=== PATIENT | male | born 1945 | race Caucasian/White ===

== ENCOUNTER 2017-02-24 12:01 | Outpatient (CLI) ==
--- NOTE | 2017-02-24 14:03 | DI ---
Exam: Lumbar spine five views History: Lower back pain FINDINGS: Frontal, lateral, lumbosacral and bilateral oblique projections. Lumbar spine shows berry l alignment. Vertebral body height is maintained. Multilevel low grade anterior plate spondylosis. Minor disc space narrowing mostly at L4-5. Probably low grade lower lumbar facet arthropathy. No s uspicious bony lesions or acute bony abnormalities. Impression: 1. No acute abnormalities of the lumbar spine. Low grade degenerative change by radiograph.
== END 2017-02-24 12:02 | disposition home or self-care (01) ==
LOC: RAD 12:01
PROVIDERS: ATTEND Internal Medicine
DX: M54.5 Low back pain (principal)

== ENCOUNTER 2017-08-25 08:09 | Inpatient (IN) | payer OTHER ==
[2017-08-25 08:15] VITALS: BMI 23.1
[2017-08-25] MEDS ORDERED: SOLU-CORTEF 250 MG IVP STA (08:33)
[2017-08-25] MEDS ORDERED: DUONEB NEB STA (08:33)
--- NOTE | 2017-08-25 09:18 | CT ---
EXAM: CT of the chest without contrast History: Cough. Comparison: Chest radiograph 12/17/2014, chest CT 12/13/2014 Technique: Multiplanar CT images through the chest were obtained without the administration of IV co ntrast Findings: Heart size is normal. No pericardial effusion. Great vessels are unremarkable. No patho logically enlarged thoracic lymph nodes. Mild bilateral gynecomastia. Calcified granulomas again se en within the thorax. Mild diffuse bronchial wall thickening. No consolidation. No pleural fluid an d no pneumothorax. No suspicious lung masses or lung nodules. Within the visualized upper abdomen, no acute findings. No acute osseous abnormalities. Impression: Mild diffuse bronchial wall thickening but no consolidated pneumonia.
--- NOTE | 2017-08-25 10:17 | ED.PDOC ---
General ED Provider: Dr. ARIAS ULLOA Chief Complaint: Respiratory Complaint Stated Complaint: cough, wheezing Time Seen by Physician: 08:16 (no respiratory distress ) Mode of Arrival: Walk-In Information Source: Patient Exam Limitations: No limitations Primary Care Provider: SARAY MCCULLOUGH Nursing and Triage Documentation Reviewed and Agree: Yes Reviewed sepsis parameters & appropriate labs ordered?: No System Inflammatory Response Syndrome: Not Applicable Sepsis Protocol: For patient's 13 years and over: Temp is 96.8 and below OR 101 and greater Pulse >90 BPM Resp >20/minute Acutely Altered Mental Status Are patient's symptoms suggestive of a new infection, such as: -Pneumonia -Skin, Soft Tissue -Endocarditis -UTI -Bone, Joint Infection -Implantable Device -Acute Abdominal Infection -Wound Infection -Meningitis -Blood Stream Catheter Infection -Unknown System Inflammatory Response Syndrome: Not Applicable Review of Systems - Review Of Systems Constitutional: Reports: No symptoms Eyes: Reports: No symptoms Ears, Nose, Mouth, Throat: Reports: No symptoms Respiratory: Reports: Cough, Wheezing Cardiac: Reports: No symptoms GI: Reports: No symptoms : Reports: No symptoms Musculoskeletal: Reports: No symptoms Skin: Reports: No symptoms Neurological: Reports: No symptoms Endocrine: Reports: No symptoms Hematologic/Lymphatic: Reports: No symptoms All Other Systems: Reviewed and Negative Past Medical History - Past Medical History Previously Healthy: Yes Endocrine: Reports: None Cardiovascular: Reports: None Respiratory: Reports: COPD Hematological: Reports: None Gastrointestinal: Reports: None Genitourinary: Reports: None Neuro/Psych: Reports: None Musculoskeletal: Reports: None Cancer: Reports: None - Surgical History General Surgical History: Reports: None - Family History Family History: Reports: None - Social History Smoking Status: Never smoker Hx Substance Use: No Alcohol Screening: None Physical Exam - Physical Exam Appearance: Well-appearing, No pain distress, Well-nourished Eyes: DEMARCUS, EOMI, Conjunctiva clear ENT: Ears normal, Nose normal, Oropharynx normal Respiratory: Wheezes Cardiovascular: RRR, Pulses normal, No rub, No murmur GI/: Soft, Nontender, No masses, Bowel sounds normal, No Organomegaly Musculoskeletal: Normal strength, ROM intact, No edema, No calf tenderness Skin: Warm, Dry, Normal color Neurological: Sensation intact, Motor intact, Reflexes intact, Cranial nerves intact, Alert, Oriented Psychiatric: Affect appropriate, Mood appropriate Interpretation - Radiology Interpretation Radiology Interpretation By: Radiologist Radiology Results: No acute changes Re-Evaluation - Re-Evaluation Time of Re-Evaluation: 10:00 Status: Improved Vital Signs Stable: Yes Pain Level: 0 Appearance: NAD Lungs: Other (still has scattere wheezing) Skin: Warm and Dry Neuro: Alert and Oriented X3 CV: RRR Physician Notification - Case Discussed Physician Notified: mccullough Time of Notification: 10:17 Admit To: Inpatient Critical Care Note - Critical Care Note Total Time (mins): 0 Course - Course Hematology/Chemistry: 08/25/17 08:50 08/25/17 08:50 Orders, Labs, Meds: Lab Review 08/25/17 08/25/17 08/25/17 08:33 08:50 08:50 WBC 9.02 RBC 4.73 Hgb 14.8 Hct 42.4 MCV 89.6 MCH 31.3 H MCHC 34.9 RDW Coeff of Cindy 12.5 Plt Count 218 Immature Gran % (Auto) 0.2 Neut % (Auto) 50.9 Lymph % (Auto) 21.2 [place] % (Auto) 10.8 H Eos % (Auto) 16.1 H Baso % (Auto) 0.8 Immature Gran # (Auto) 0.0 Neut # (Auto) 4.6 Lymph # (Auto) 1.9 [place] # (Auto) 1.0 Eos # (Auto) 1.5 H Baso # (Auto) 0.1 Puncture Site Rrad O2 Saturation 94.0 L ABG pH 7.408 ABG pCO2 39.3 ABG pO2 71.0 L ABG HCO3 24.8 ABG Total CO2 26 ABG Base Excess 0 Wyatt Test + FiO2 % 21.0 Sodium 136 Potassium 4.3 Chloride 101 Carbon Dioxide 27 Anion Gap 12.3 BUN 11 Creatinine 1.02 Estimated GFR (MDRD) 72.00 BUN/Creatinine Ratio 10.78 Glucose 83 Calcium 9.5 Total Bilirubin 0.7 AST 26 ALT 22 Alkaline Phosphatase 47 L Total Creatine Kinase 175 CK-MB (CK-2) 3.8 H CK-MB (CK-2) % 2.87729 Troponin I < 0.0100 B-Natriuretic Peptide Total Protein 6.5 Albumin 3.5 Globulin 3.0 Albumin/Globulin Ratio 1.17 Influ A Molecular Assay Influ B Molecular Assay 08/25/17 08/25/17 08:50 09:25 WBC RBC Hgb Hct MCV MCH MCHC RDW Coeff of Cindy Plt Count Immature Gran % (Auto) Neut % (Auto) Lymph % (Auto) [place] % (Auto) Eos % (Auto) Baso % (Auto) Immature Gran # (Auto) Neut # (Auto) Lymph # (Auto) [place] # (Auto) Eos # (Auto) Baso # (Auto) Puncture Site O2 Saturation ABG pH ABG pCO2 ABG pO2 ABG HCO3 ABG Total CO2 ABG Base Excess Wyatt Test FiO2 % Sodium Potassium Chloride Carbon Dioxide Anion Gap BUN Creatinine Estimated GFR (MDRD) BUN/Creatinine Ratio Glucose Calcium Total Bilirubin AST ALT Alkaline Phosphatase Total Creatine Kinase CK-MB (CK-2) CK-MB (CK-2) % Troponin I B-Natriuretic Peptide 22 Total Protein Albumin Globulin Albumin/Globulin Ratio Influ A Molecular Assay Negative by naat Influ B Molecular Assay Negative by naat Orders Category Date Time Status ABG DRAW REQUEST Stat CARDIO 08/25/17 08:33 Completed EKG-(ED ONLY) Stat CARDIO 08/25/17 08:32 Completed NEBULIZER TREATMENT Stat CARDIO 08/25/17 08:33 Completed ABG Stat LAB 08/25/17 08:33 Completed BNP [B-TYPE NATRIURETIC PEPTIDE] Stat LAB 08/25/17 08:50 Completed CBC W/ AUTO DIFF Stat LAB 08/25/17 08:50 Completed COMPREHENSIVE METABOLIC PANEL Stat LAB 08/25/17 08:50 Completed CREATINE KINASE Stat LAB 08/25/17 08:50 Completed FLU A/B MOLECULAR Stat LAB 08/25/17 09:25 Completed TROPONIN I Stat LAB 08/25/17 08:50 Completed Hydrocortisone Sod Succ/Pf [Solu-Cortef 250 mg] MEDS 08/25/17 08:33 Discontinued 125 mg IVP ONCE STA Ipratropium/Albuterol Neb [Duoneb] MEDS 08/25/17 08:33 Discontinued 1 vial NEB ONCE STA CT CHEST W/O CONTRAST Stat RADS 08/25/17 08:34 Completed Medications Discontinued Medications Generic Name Dose Route Start Last Admin Trade Name Freq PRN Reason Stop Dose Admin Albuterol/Ipratropium 1 vial 08/25/17 08:33 08/25/17 08:49 Duoneb NEB 08/25/17 08:34 1 vial ONCE STA Administration Hydrocortisone Sodium Succinate 125 mg 08/25/17 08:33 08/25/17 09:07 Solu-Cortef 250 Mg IVP 08/25/17 08:34 125 mg ONCE STA Administration Vital Signs: Temp Pulse Resp BP Pulse Ox 08/25/17 08:11 96.7 F L 66 20 148/79 H 92 L Departure - Departure Time of Disposition: 10:17 Disposition: ADMITTED INPATIENT Discharge Problem: COPD (chronic obstructive pulmonary disease) Qualifiers: COPD type: unspecified COPD Qualified Code(s): J44.9 - Chronic obstructive pulmonary disease, unspecified Instructions: COPD (Chronic Obstructive Pulmonary Disease) (ED) Condition: Good Pt referred to PMD for follow-up: Yes IPMP verified?: No Additional Instructions: Please call your Family Physician as soon as possible to schedule a follow-up appointment. Allergies/Adverse Reactions: Allergies Penicillins Adverse Reaction (Verified 08/25/17 08:11) Home Medications: Ambulatory Orders Albuterol Sulfate [Ventolin Hfa] 18 gm IH Q4-6H PRN 08/25/17 Aspirin [Aspirin EC] 81 mg PO EVERY OTHER DAY 08/25/17 Atorvastatin Calcium 20 mg PO DAILY 08/25/17 Calcium Carbonate [Calcium] 600 mg PO DAILY 08/25/17 Clindamycin HCl 300 mg PO BID 08/25/17 Finasteride 5 mg PO DAILY 08/25/17 Ipratropium/Albuterol Neb [Duoneb] 1 vial NEB RTQ6H PRN 08/25/17 Multivitamin,Ther and Minerals [Vitamin and Minerals] 1 tab PO DAILY 08/25/17 [place]-3 Fatty Acids/Fish Oil [Fish Oil 1,000 mg Capsule] 1 each PO DAILY
[2017-08-25] MEDS ORDERED: ROCEPHIN 1 GM in SODIUM CHLORIDE 50 ML IV STA (10:20)
[2017-08-25] MEDS ORDERED: ZITHROMAX 500 MG in SODIUM CHLORIDE 250 ML IV STA (10:20)
[2017-08-25] MEDS ORDERED: ROCEPHIN ONE (10:23)
[2017-08-25] MEDS ORDERED: DUONEB NEB SCH (12:00)
[2017-08-25] MEDS ORDERED: SOLU-MEDROL 40 MG IVP SCH (13:00)
[2017-08-25] MEDS: ZITHROMAX PO SCH (13:38)
[2017-08-25] MEDS: SODIUM CHLORIDE 1,000 ML IV SCH (13:43)
[2017-08-25] MEDS: DUONEB NEB SCH ×2 (14:08→20:50)
[2017-08-25] MEDS: PROTONIX PO SCH (16:06)
[2017-08-25] MEDS: SOLU-MEDROL 125 MG IVP SCH (20:46)
[2017-08-26] MEDS: SODIUM CHLORIDE 1,000 ML IV SCH (01:10)
[2017-08-26] MEDS: DUONEB NEB SCH ×4 (05:12→19:50)
[2017-08-26] MEDS: PROTONIX PO SCH ×2 (06:00→17:13)
[2017-08-26] MEDS: SOLU-MEDROL 125 MG IVP SCH ×3 (06:00→21:23)
[2017-08-26] MEDS: TUSSIONEX PO SCH ×2 (08:04→21:24)
[2017-08-26] MEDS: ZITHROMAX PO SCH (08:05)
[2017-08-26] MEDS: ROCEPHIN 1 GM in SODIUM CHLORIDE 50 ML IV SCH (08:05)
[2017-08-26] MEDS: PROSCAR PO SCH ×2 (08:05→08:09)
[2017-08-26] MEDS: LIPITOR PO SCH (08:05)
--- NOTE | 2017-08-26 10:32 | PN ---
DATE OF SERVICE: 08/25/17 (ADMIT NOTE) SUBJECTIVE: The patient was hospitalized with bilateral wheezing. The patient has been having wheezing with bronchitis type of symptoms for past 4-5 months in between he is completely normal and also has some reflux type of symptoms. The patient was given IV Solu-Cortef along with NEBS treatment. He was hospitalized and a CT scan of the chest was negative for any pneumonia. The patient when I examined him was a lot better. He was eating and there was no audible wheezing. PHYSICAL EXAMINATION: HEENT: Head normocephalic, atraumatic. Eyes: Extraocular muscles are intact. Pupils are equal, round and reactive to light and accommodation. Ears: No lesions. Nose appeared normal. Throat: No exudate or erythema. NECK: Supple. No JVD, no carotid bruit. No lymphadenopathy or thyromegaly. LUNGS: Decreased breath sounds but good air entry with mild expiratory wheezing and was not in any distress. Clear to auscultation. Percussion note normal. Chest symmetrical. HEART: S1, S2, no S3. No murmurs. No cyanosis or clubbing. No ascites. Pulses: Dorsalis pedis and posterior tibial pulses +1 to +2 both sides. ABDOMEN: Soft. Nontender. Bowel sounds active. No CVA tenderness. No mass felt. EXTREMITIES: No edema. Full range of motion of all extremities, equal. NEUROLOGIC: No focal deficit. Cranial nerves II through XII are grossly intact. No headache, no double vision or headache. SKIN: Not dry. Intact. Turgor - normal. LYMPHATIC: No palpable lymph nodes/no lymphedema. MUSCULOSKELETAL: Normal joints with no swelling. Muscle tone is normal. CONDITION: Improved. PLAN: 1. He is going need reflux therapy along with steroids for the time being. 2. Antibiotics as his sputum is yellowish color. 3. He may need referral to pulmonary physician to evaluate his status. TIME SPENT: More than 30 minutes. Plan and coordination of the patient's care discussed in the presence of nurse. STEVE
--- NOTE | 2017-08-26 10:47 | HP ---
DATE OF SERVICE: 08/25/17 HISTORY OF PRESENT ILLNESS: This is a 72-year-old white male who presented to the emergency room by his family complaining of coughing, wheezing. He was having pain with breathing. He has been treated multiple times over the past several months for bronchitis. Most recently finished a Z-pack and Prednisone 2 weeks ago. PAST MEDICAL HISTORY: Dyslipidemia BPH Cervical radiculopathy Mild asthma Chronic kidney disease, Stage 2 to 3 History of diverticulosis PAST SURGICAL HISTORY: None REVIEW OF SYSTEMS: CONSTITUTIONAL: No night sweats. No fatigue, malaise, lethargy. No fever or chills. HEENT: Eyes: No visual changes. No eye pain. No eye discharge. ENT: No runny nose. No epistaxis. No sinus pain. No sore throat. No odynophagia. No ear pain. No congestion. RESPIRATORY: Positive for cough, wheezing and shortness of breath. Pain with coughing. No hemoptysis. CARDIOVASCULAR: No angina symptoms. No CHF symptoms. No atypical chest pain for CAD. No palpitations. No PND. No orthopnea. GASTROINTESTINAL: No abdominal pain. No nausea or vomiting. No diarrhea or constipation. No hematemesis. No hematochezia. GENITOURINARY: No urgency. No frequency. No dysuria. No hematuria. No obstructive symptoms. No discharge. No pain. No significant abnormal bleeding. MUSCULOSKELETAL: No musculoskeletal pain. No joint swelling. No arthritis. NEUROLOGICAL: No headache. No neck pain. No syncope. No seizures. No dizziness. PSYCHIATRIC: Not anxious. No depression. No suicidal thoughts. No homicidal thoughts. SKIN: No rash. No lesions. No wounds. ENDOCRINE: No unexplained weight loss. No weight gain. HEMATOLOGIC/LYMPHATIC: No anemia. No purpura. No petechiae. No prolonged or excessive bleeding. No palpable lymph nodes. PERSONAL/FAMILY/SOCIAL HISTORY: The patient is a nonsmoker. He is . He currently lives at home with his . No alcohol or ilicit drug use. MEDICATIONS: Ventolin Hfa 18 gm IH q.4-6h p.r.n. Calcium 600 mg p.o. daily Finasteride 5 mg p.o. daily Atorvastatin 20 mg p.o. q.p.m. Duoneb one vial neb Rt q.6h p.r.n. Clindamycin 300 mg p.o. b.i.d. [place] 3 Fatty Acids/Fish Oil one each p.o. daily Aspirin 81 mg p.o. every other day Multivitamin one tab p.o. daily ALLERGIES: PENICILLIN PHYSICAL EXAMINATION: VITAL SIGNS: Temperature 96.7, pulse 66, BP 148/79, respiratory rate 20, 02 sat 92 on room air. HEENT: Head normocephalic, atraumatic. Eyes: Extraocular muscles are intact. Pupils are equal, round and reactive to light and accommodation. Ears: No lesions. Nose appeared normal. Throat: No exudate or erythema. NECK: Supple. No JVD, no carotid bruit. No lymphadenopathy or thyromegaly. LUNGS: Bilateral rhonchi with inspiratory and expiratory wheezing. Percussion note normal. Chest symmetrical. HEART: S1, S2, no S3. No murmurs. No cyanosis or clubbing. No ascites. Pulses: Dorsalis pedis and posterior tibial pulses +1 to +2 bilaterally. ABDOMEN: Soft. Nontender. Bowel sounds active. No CVA tenderness. No mass felt. EXTREMITIES: No edema. Full range of motion of all extremities, equal. NEUROLOGIC: No focal deficit. Cranial nerves II through XII are grossly intact. No headache, no double vision or headache. SKIN: Not dry. Intact. Turgor - normal. LYMPHATIC: No palpable lymph nodes/no lymphedema. MUSCULOSKELETAL: Normal joints with no swelling. Muscle tone is normal. CT of chest shows mild diffuse bronchial wall thickening but no consolidated pneumonia. Sodium 136, potassium 4.3, BUN 11, creatinine 1.02, glucose 83, GFR 72, AST 26, ALT 22, BNP 22, alkaline phosphatase 47. Rapid flu negative. White count 9.02, hemoglobin 14.8, hematocrit 42.4, platelets 218. ABG on room air, pH 7.408, pc02 39.3, p02 71, base excess 0, bicarb 24.8, TC02 26, 02 sat 94. ASSESSMENT: 1. ACUTE BRONCHITIS/PNEUMONITIS 2. SHORTNESS OF BREATH 3. PLEURITIC TYPE PAIN 4. UNDERLYING ASTHMA PLAN: 1. Admit 2. Routine telemetry orders 3. Skip cardiac enzymes 4. CBC, CMP daily 5. Regular diet 6. Rocephin 1 gm IV daily 7. Solu-Cortef 125 mg IV q.8hr 8. Xopenex neb treatments q.6hr WILBERT 9. Oxygen at 1 to 2L as needed 10. Continue home medications 11. Will follow closely TIME SPENT: More than 70 minutes. MTDD
--- NOTE | 2017-08-26 11:42 | PCM.PROG ---
Attending Provider: ATTENDING PROVIDER: Dr. SARAY KEYES This patient is seen with Mary Mc, Nurse Practitioner. DATE OF SERVICE: 08/26/17 SUBJECTIVE: This 72 year old WHITE/ M was hospitalized 08/25/17. The patient is lying in bed, alert. He states he didn't sleep well. He is coughing and wheezing still. REVIEW OF SYSTEMS: CONSTITUTIONAL: No night sweats. No fatigue, malaise, lethargy. No fever or chills. HEENT: Eyes: No visual changes. No eye pain. No eye discharge. ENT: No runny nose. No epistaxis. No sinus pain. No odynophagia. No congestion. RESPIRATORY: Cough and wheeze. No hemoptysis. No shortness of breath. CARDIOVASCULAR: No angina symptoms. No CHF symptoms. No atypical chest pain for CAD. No palpitations. No orthopnea.. GASTROINTESTINAL: No abdominal pain. No nausea or vomiting. No diarrhea or constipation. No hematemesis. No hematochezia. GENITOURINARY: No urgency. No frequency. No dysuria. No hematuria. No obstructive symptoms. No discharge. No pain. No significant abnormal bleeding. MUSCULOSKELETAL: No musculoskeletal pain; no joint swelling. NEUROLOGICAL: Awake, alert, oriented to time, place and person. No headache. No neck pain. No syncope. No seizures. No dizziness. PSYCHIATRIC: Not anxious. No depression. No suicidal thoughts. No homicidal thoughts. SKIN: No rash. No lesions. No wounds. ENDOCRINE: No unexplained weight loss. No weight gain. HEMATOLOGIC/LYMPHATIC: No anemia. No purpura. No petechiae. No prolonged or excessive bleeding. No palpable lymph nodes. PHYSICAL EXAMINATION: GENERAL: The patient is awake, alert and oriented, lying in bed in no distress. VITAL SIGNS: Temperature 97.6 F, Pulse 71, Respiratory Rate 18, BP 131/69, Pulse Ox 99% HEENT: Head normocephalic, atraumatic. Eyes: Extraocular muscles are intact. Pupils are equal, round and reactive to light and accommodation. Ears: No lesions. Nose appeared normal. Throat: No exudate or erythema. NECK: Supple. No JVD, no carotid bruit. No lymphadenopathy or thyromegaly. LUNGS: Diminished breath sounds bilaterally, rhonchi on the left and bilateral expiratory wheeze. Percussion note normal. Chest symmetrical. HEART: S1, S2, no S3. No murmurs. No cyanosis or clubbing. No ascites. Pulses: Dorsalis pedis and posterior tibial pulses +1 to +2 both sides. ABDOMEN: Soft. Non-tender. Bowel sounds active. No CVA tenderness. No mass felt. EXTREMITIES: No edema. Full range of motion of all extremities, equal. NEUROLOGIC: No focal deficit. Cranial nerves II through XII are grossly intact. No headache, no double vision or headache. SKIN: Not dry. Intact. Turgor-normal. LYMPHATIC: No palpable lymph nodes/no lymphedema. MUSCULOSKELETAL: Normal joints with no swelling. Muscle tone is normal. LAB REVIEW: 08/26/17 05:40 08/26/17 05:40 08/26/17 05:40: Sodium 139, Potassium 3.8, Chloride 106, Carbon Dioxide 24, Anion Gap 12.8, BUN 15, Creatinine 0.91, Estimated GFR (MDRD) 82.00, BUN/ Creatinine Ratio 16.48, Glucose 146 H D, Calcium 9.8, Total Bilirubin 0.4, AST 21, ALT 21, Alkaline Phosphatase 49 L, Total Protein 6.4, Albumin 3.5, Globulin 2.9, Albumin/Globulin Ratio 1.21 08/26/17 05:40: WBC 12.33 H, RBC 4.64 L, Hgb 14.3, Hct 41.2 L, MCV 88.8, MCH 30.8, MCHC 34.7, RDW Coeff of Cindy 12.5, Plt Count 231, Immature Gran % (Auto) 0.2, Neut % (Auto) 88.6, Lymph % (Auto) 7.6 L, [place] % (Auto) 3.5, Eos % (Auto) 0.0, Baso % (Auto) 0.1, Immature Gran # (Auto) 0.0, Neut # (Auto) 10.9 H, Lymph # (Auto) 0.9, [place] # (Auto) 0.4, Eos # (Auto) 0.0, Baso # (Auto) 0.0 08/25/17 09:25: Influ A Molecular Assay Negative by naat, Influ B Molecular Assay Negative by naat 08/25/17 08:50: B-Natriuretic Peptide 22 08/25/17 08:50: Sodium 136, Potassium 4.3, Chloride 101, Carbon Dioxide 27, Anion Gap 12.3, BUN 11, Creatinine 1.02, Estimated GFR (MDRD) 72.00, BUN/ Creatinine Ratio 10.78, Glucose 83, Calcium 9.5, Total Bilirubin 0.7, AST 26, ALT 22, Alkaline Phosphatase 47 L, Total Creatine Kinase 175, CK-MB (CK-2) 3.8 H , CK-MB (CK-2) % 2.63890, Troponin I < 0.0100, Total Protein 6.5, Albumin 3.5, Globulin 3.0, Albumin/Globulin Ratio 1.17 08/25/17 08:50: WBC 9.02, RBC 4.73, Hgb 14.8, Hct 42.4, MCV 89.6, MCH 31.3 H, MCHC 34.9, RDW Coeff of Cindy 12.5, Plt Count 218, Immature Gran % (Auto) 0.2, Neut % (Auto) 50.9, Lymph % (Auto) 21.2, [place] % (Auto) 10.8 H, Eos % (Auto) 16.1 H, Baso % (Auto) 0.8, Immature Gran # (Auto) 0.0, Neut # (Auto) 4.6, Lymph # (Auto) 1.9, [place] # (Auto) 1.0, Eos # (Auto) 1.5 H, Baso # (Auto) 0.1 08/25/17 08:33: Puncture Site Rrad, O2 Saturation 94.0 L, ABG pH 7.408, ABG pCO2 39.3, ABG pO2 71.0 L, ABG HCO3 24.8, ABG Total CO2 26, ABG Base Excess 0, Wyatt Test +, FiO2 % 21.0 ASSESSMENT: 1. Acute bronchitis 2. Bronchial asthma 3. Shortness of breath which has improved PLAN: 1. Referral to lung specialist as outpatient, Dr. Mukherjee or Dr. Tyler. 2. Tussionex b.i.d. WILBERT 3. Ativan 1 mg q.h.s. 4. D/C IV fluids Plan and coordination of the patient's care discussed in the presence of Environmental Field Professional and nurse. CONDITION: Stable SCRIBED BY: Huber JOSE scribed while in presence of service performed by Dr. Keyes/Mary Mc APRN on 08/26/17 ([id number])
[2017-08-26] MEDS ORDERED: ATIVAN PO SCH (21:00)
[2017-08-27] MEDS: DUONEB NEB SCH ×2 (05:31→10:11)
[2017-08-27] MEDS: SOLU-MEDROL 125 MG IVP SCH ×2 (05:52→13:13)
[2017-08-27] MEDS: PROTONIX PO SCH (05:52)
[2017-08-27] MEDS: ROCEPHIN 1 GM in SODIUM CHLORIDE 50 ML IV SCH (08:58)
[2017-08-27] MEDS: PROSCAR PO SCH (08:58)
[2017-08-27] MEDS: ZITHROMAX PO SCH (08:58)
[2017-08-27] MEDS: LIPITOR PO SCH (08:58)
[2017-08-27] MEDS ORDERED: ASPIRIN EC PO SCH (09:00)
[2017-08-27] MEDS: TUSSIONEX PO SCH (09:03)
--- NOTE | 2017-08-27 09:23 | PCM.PROG ---
Attending Provider: ATTENDING PROVIDER: Dr. SARAY MENDOZA DATE OF SERVICE: 08/27/17 SUBJECTIVE: This 72 year old WHITE/ M was hospitalized 08/25/17 with acute asthmatic bronchitis. The patient's condition is improving with steroids and antibiotics. Will treat the patient for reflux. Will use Singulair in the evening. Cardiovascular status stable with no symptoms of CHF or CAD. REVIEW OF SYSTEMS: CONSTITUTIONAL: No night sweats. No fatigue, malaise, lethargy. No fever or chills. HEENT: Eyes: No visual changes. No eye pain. No eye discharge. ENT: No runny nose. No epistaxis. No sinus pain. No odynophagia. No congestion. RESPIRATORY: No cough, no congestion. No hemoptysis. No shortness of breath. CARDIOVASCULAR: No angina symptoms. No CHF symptoms. No atypical chest pain for CAD. No palpitations. No orthopnea.. GASTROINTESTINAL: No abdominal pain. No nausea or vomiting. No diarrhea or constipation. No hematemesis. No hematochezia. GENITOURINARY: No urgency. No frequency. No dysuria. No hematuria. No obstructive symptoms. No discharge. No pain. No significant abnormal bleeding. MUSCULOSKELETAL: No musculoskeletal pain; no joint swelling. NEUROLOGICAL: Awake, alert, oriented to time, place and person. No headache. No neck pain. No syncope. No seizures. No dizziness. PSYCHIATRIC: Not anxious. No depression. No suicidal thoughts. No homicidal thoughts. SKIN: No rash. No lesions. No wounds. ENDOCRINE: No unexplained weight loss. No weight gain. HEMATOLOGIC/LYMPHATIC: No anemia. No purpura. No petechiae. No prolonged or excessive bleeding. No palpable lymph nodes. PHYSICAL EXAMINATION: GENERAL: The patient is awake, alert and oriented, lying in bed in no distress. VITAL SIGNS: Temperature 97.9 F, Pulse 78, Respiratory Rate 22, BP 117/64, Pulse Ox 95% HEENT: Head normocephalic, atraumatic. Eyes: Extraocular muscles are intact. Pupils are equal, round and reactive to light and accommodation. Ears: No lesions. Nose appeared normal. Throat: No exudate or erythema. NECK: Supple. No JVD, no carotid bruit. No lymphadenopathy or thyromegaly. LUNGS: Decreased breath sounds, clear to auscultation. Percussion note normal. Chest symmetrical. HEART: S1, S2, no S3. No murmurs. No cyanosis or clubbing. No ascites. Pulses: Dorsalis pedis and posterior tibial pulses +1 to +2 both sides. ABDOMEN: Soft. Non-tender. Bowel sounds active. No CVA tenderness. No mass felt. EXTREMITIES: No edema. Full range of motion of all extremities, equal. NEUROLOGIC: No focal deficit. Cranial nerves II through XII are grossly intact. No headache, no double vision or headache. SKIN: Warm and dry. Intact. Turgor-normal. LYMPHATIC: No palpable lymph nodes/no lymphedema. MUSCULOSKELETAL: Normal joints with no swelling. Muscle tone is normal. LAB REVIEW: 08/27/17 04:30 08/27/17 04:30 08/27/17 04:30: Sodium 138, Potassium 4.5, Chloride 106, Carbon Dioxide 24, Anion Gap 12.5, BUN 17, Creatinine 0.90, Estimated GFR (MDRD) 83.00, BUN/ Creatinine Ratio 18.88, Glucose 133 H, Calcium 8.9, Total Bilirubin 0.3, AST 17 , ALT 19, Alkaline Phosphatase 40 L, Total Protein 5.6 L, Albumin 3.0 L, Globulin 2.6, Albumin/Globulin Ratio 1.15 08/27/17 04:30: WBC 17.52 H D, RBC 4.21 L, Hgb 13.2 L, Hct 38.0 L, MCV 90.3, MCH 31.4 H, MCHC 34.7, RDW Coeff of Cindy 12.8, Plt Count 233, Immature Gran % ( Auto) 0.7, Neut % (Auto) 93.1, Lymph % (Auto) 3.7 L, Hendry % (Auto) 2.4, Eos % ( Auto) 0.0, Baso % (Auto) 0.1, Immature Gran # (Auto) 0.1, Neut # (Auto) 16.3 H, Lymph # (Auto) 0.7, Hendry # (Auto) 0.4, Eos # (Auto) 0.0, Baso # (Auto) 0.0 ASSESSMENT: 1. Acute asthmatic bronchitis clinically has resolved PLAN: 1. Continue steroids, antibiotics, inhalers 2. Singulair to be taken in the evening 3. Continue rest of medications 4. Will undergo Echocardiogram 5. PFT to be done before discharge 6. The patient is to see Dr. Mendoza back in 7 to 10 days 7. Followup with Finishing Area Supervisor, Dr. Mukherjee 8. D/C home 9. Protonix Plan and coordination of the patient's care discussed in the presence of Assembler [employer] and nurse. CONDITION: Stable SCRIBED BY: VICKY ROMO Dietitian Chief scribed while in presence of service performed by Dr. SARAY MENDOZA on 08/27/17 ([id number])
[2017-08-27 12:58] VITALS: BP 119/73; TEMP 97.6
--- NOTE | 2017-08-28 10:48 | ECHO2D ---
Date of Exam: 08/27/17 Ordering Physician: DR. SARAY MENDOZA Room #: 112 Reason for Echo: SOA, FAMILY HX DYSRHYTHMIA M-Mode Normal Adult Results LV Dimensions Normal Adult Results AoV Opening excursions >1.6 >1.6 LVEDD-base- 3.5-5.8 3.6 Ao root dimensions 2.0-3.7 3.5 LVESD-base- 3.1-4.6 L. Atrium dimensions 1.9-3.8 3.6 Post. Wall thickness 0.8-1.1 1.2 IV septum (thickness) 0.7-1.2 1.2 Post. Wall excursion 0.72-1.3 NORMAL Septal motion NORMAL Systolic motion R. Ventricular cavity 1.5-2.0 NORMAL LVEF 60% 70% Paradoxical septal wall motion NORMAL 2-D : 2-D M Mode Echocardiogram was performed using apical four chamber and left parasternal long and short axis views. Mitral, tricuspid and aortic valves appear to be normal. Contractility of the left ventricle seems to be normal, so is the cavity size. Left atrial cavity size and aortic root appear to be normal. There is no pericardial effusion. There is no thrombus noted in the left ventricular or left aortic cavity. No mitral valve prolapse noted. M-MODE: MV: NORMAL AV: NORMAL TV: NORMAL PV: CHAMBER SIZE: NORMAL WALL MOTION: NORMAL PERICARDIUM: NORMAL INTERPRETATION: 1. NORMAL 2 "D" "M" MODE ECHO MTDD
--- NOTE | 2017-08-28 13:23 | PN ---
DATE OF SERVICE: 08/26/17 SUBJECTIVE: 72 year old white male hospitalized with acute asthmatic bronchitis. The patient 's condition has improved. PHYSICAL EXAMINATION: HEENT: Head normocephalic, atraumatic. Eyes: Extraocular muscles are intact. Pupils are equal, round and reactive to light and accommodation. Ears: No lesions. Nose appeared normal. Throat: No exudate or erythema. NECK: Supple. No JVD, no carotid bruit. No lymphadenopathy or thyromegaly. LUNGS: Mild expiratory wheeze. Clear to auscultation. Percussion note normal. Chest symmetrical. The patient may have some reflux problems causing his asthmatic bronchitis. The patient is short of breath on exertion likely from chronic lung condition. The patient has dyslipidemia and heart diseases. HEART: S1, S2, no S3. No murmurs. No cyanosis or clubbing. No ascites. Pulses: Dorsalis pedis and posterior tibial pulses +1 to +2 both sides. ABDOMEN: Soft. Nontender. Bowel sounds active. No CVA tenderness. No mass felt. EXTREMITIES: No edema. Full range of motion of all extremities, equal. NEUROLOGIC: No focal deficit. Cranial nerves II through XII are grossly intact. No headache, no double vision or headache. SKIN: Not dry. Intact. Turgor - normal. LYMPHATIC: No palpable lymph nodes/no lymphedema. MUSCULOSKELETAL: Normal joints with no swelling. Muscle tone is normal. PLAN: 1. Will also do echo. Would not be a bad idea to even do a stress test. The patient was seen and examined with the Nurse Practitioner. The patient is already being referred Pulmonary Physician. TIME SPENT: More than 30 minutes. Plan and coordination of the patient's care discussed in the presence of nurse. STEVE
--- NOTE | 2017-08-28 13:46 | DS ---
DATE OF SERVICE: 08/27/17 FINAL DIAGNOSIS: 1. Acute asthmatic bronchitis 2. Chronic lung disease 3. Shortness of breath 4. GERD 5. Dyslipidemia 6. BPH (Dr. Walters) 7. History of fractured ribs, 1989 8. Skin cancer-forehead (excised 2007) 9. Right knee scope 10.Never smoker LAST VITALS: Temperature 97.9, pulse 78, respiratory rate 22, blood pressure 117/64 and pulse ox 95%. DISCHARGE INSTRUCTIONS: Discharge home today. Return to see Dr. Keyes in his office on 09/03/17 at 10: 30am. Keep scheduled appointment with Dr. Bhandari, inside sales recruiter, on 09/23/17 at 9am; Respiratory disease clinic. Take the radiology CD provided to your pulmonology appointment Dr. Bhandari's office will mail paperwork for completion. Resume your home medication as per list provided by the nursing staff. Do not take your Clindamycin HCL. MEDICATIONS AT DISCHARGE: DUO NEBS one NEB RT four times a day Ventolin HFA 18 gram IG Q 4-6 hours PRN Aspirin 81mg PO every other day Lipitor 20mg PO daily Calcium Carbonate 600mg PO daily Proscar 5mg PO daily Keflex 500mg PO twice a day x 5 days Multivitamin [place]-3 Fatty acids/fish oil 1,000mg Po daily Protonix 40mg PO twice a day Prednisone 10mg PO twice a day x 5 days then daily x 5 days. ALLERGIES: Penicillins NEW PRESCRIPTIONS: Prednisone 10mg orally twice daily with food x5 days, then daily with good for 5 days Keflex 500mg take one capsule by mouth twice daily for 5 days Singulair 10mg take one tablet by mouth at bedtime daily Protonix 40mg take one tablet by mouth before meals twice daily DO NOT TAKE CLINDAMYCIN HCL DIET INSTRUCTIONS: Healthy heart ACTIVITY: Get plenty of rest at home. Gradually increase your activity level according to toleration SMOKING: Never smoker DISEASE SPECIFIC EDUCATION: Acute asthmatic bronchitis GERD Chronic lung disease Pulmonology referral Followup Home medications and changes made during this hospitalization New Prescriptions Adverse effects possible with long-term steroids use. HOSPITAL COURSE: 72 year old white male hospitalized with acute asthmatic bronchitis. The patient was aggressively treated with IV Rocephin, Zithromax, steroids and NEBS treatment. The patient's condition improved. He was up and about. Practically there was no wheezing on physical exam at the time of discharge. The patient's cardiac markers were negative. BNP was 22. His echocardiogram revealed borderline LVH otherwise normal LV contractility and normal valvular structures. At the time of discharge hgb 13, hct 38, WBC 17,000 normal differential, creatinine 0.9, BUN 17, potassium 4.5. The patient's WBC was up very likely from steroid use. The patient was discharged on steroids and Keflex. The patient is also going to be seen by pulmonary physician for his chronic bronchial asthma. CONDITION: Stable. TIME SPENT: More than 60 minutes. STEVE
--- NOTE | 2017-08-28 13:47 | PN ---
08/25/17: Level 5 08/26/17: Intermediate 08/27/17: D as in discharge MTDD
== END 2017-08-27 13:40 | disposition home or self-care (01) | DRG 192 ==
LOC: ED 08:09 → MEDSURG B 10:21
PROVIDERS: ADMIT Internal Medicine; ATTEND Internal Medicine
DX: J44.9 Chronic obstructive pulmonary disease, unspecified (principal); R06.02 Shortness of breath; N18.2 Chronic kidney disease, stage 2 (mild); K21.9 Gastro-esophageal reflux disease without esophagitis; E78.5 Hyperlipidemia, unspecified; N40.0 Benign prostatic hyperplasia without lower urinary tract symptoms; R05 Cough; R06.2 Wheezing; Z79.899 Other long term (current) drug therapy; Z85.828 Personal history of other malignant neoplasm of skin
CPT/HCPCS: 36415; 80053; 82550; 82553; 82803; 83880; 84484; 85025; 87502; 93005; 93010; 94640; 96365; 96375; 99284

== ENCOUNTER 2018-12-23 13:44 | Outpatient (CLI) ==
--- NOTE | 2018-12-24 09:14 | MRI ---
EXAM: MRI of the right shoulder without contrast COMPARISON: Right shoulder radiographs 11/18/2018. HISTORY: Right shoulder pain. TECHNIQUE: Multiplanar noncontrast MR images of the right shoulder were acquired using a 1.2 Mary m agnet. FINDINGS: There is marked supraspinatus tendinosis with moderately severe infraspinatus and subscapu leeanne tendinosis. Mild thinning and bursal surface irregularity of the distal 2.8 cm of the supraspi natus related bursal surface fraying superimposed partial-thickness bursal surface tear which involve s less than 50% of the tendon thickness. There is also thinning and articular surface irregularity o f the distal subscapularis consistent with a partial-thickness articular surface tear involving appro ximately 50% of the tendon thickness. No definite full-thickness rotator cuff tear or tendon retract ion. Mild degenerative changes of the glenohumeral joint without an acute fracture or dislocation. Small joint effusion. Limited assessment of the glenoid labrum on this non arthrographic study. No parala bral cyst. Thickening and hyperintense signal involving the axillary pouch which may represent seque la of adhesive capsulitis or previous capsular injury. The long head of the biceps is medially subluxed within its proximal bicipital groove segment seconda ry to the tear of the insertional fibers of the subscapularis at that site with tendinosis/partial-th ickness tear of the tendon at the junction of its intra-articular and bicipital groove segments. Moderate hypertrophic degenerative changes of the acromioclavicular joint without evidence of an os a cromiale or abnormal widening of the acromioclavicular joint space. IMPRESSION: 1. Marked rotator cuff tendinosis. Bursal surface fraying/partial-thickness bursal surface tear of the supraspinatus as well as partial-thickness articular surface tear of the subscapularis. No defin ite full-thickness tendon tear or tendon retraction. 2. Fluid in the subacromial/subdeltoid bursa. 3. Hyperintense signal involving the axillary pouch which may represent sequela of adhesive capsulit is or previous capsular sprain. Correlate clinically. 4. Mild degenerative changes of the glenohumeral joint. Small joint effusion. 5. Moderate hypertrophic degenerative changes of the acromioclavicular joint.
== END 2018-12-23 13:45 | disposition home or self-care (01) ==
LOC: RAD 13:44
PROVIDERS: ATTEND Internal Medicine
DX: M25.511 Pain in right shoulder (principal)